=== PATIENT | male | born 2000 | race Caucasian/White ===

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

== ENCOUNTER 2022-02-26 18:02 | Emergency (ER) | payer OTHER ==
[~2022-02-26] VITALS: Ht 182.9 cm; Wt 105.7 kg
[2022-02-26 18:15] VITALS: BP 129/54
--- NOTE | 2022-02-26 18:23 | NUR ---
PT AMBULATED TO BED 01.
--- NOTE | 2022-02-26 18:30 | NUR ---
21 Y.O. C/O LL PELVIC PAIN X 2 DAYS. DENIES DYSURIA. PT HAD TESTICULAR DISCOMFORT YESTERDAY. HE TOLD ME THAT HE HAS DISCOMFORT NOT REALLY APIN. DENIES INJURING HIM SELF. A&OX4, SKIN INTACT, VITALS WNL AND STEADY GAIT. NKA PMH: DENIES
--- NOTE | 2022-02-26 19:18 | NUR ---
Pt report given to STEVIE FLOWERS. Transfer of care at this time.
[2022-02-26 19:42] LABS: APPEARANCE,URINE CLEAR (CLEAR); BILIRUBIN,URINE NEGATIVE (NEGATIVE); BLOOD, URINE NEGATIVE (NEGATIVE); COLOR,URINE YELLOW (YELLOW); LEUKOCYTE ESTERASE ,URINE NEGATIVE (NEGATIVE); NITRITE, URINE NEGATIVE (NEGATIVE); UGLUCOSE NEGATIVE (NEGATIVE)
[2022-02-26 21:24] VITALS: BP 144/71
--- NOTE | 2022-02-26 21:25 | NUR ---
Patient discharged with v/s stable. Written and verbal after care instructions given and explained. Patient verbalized understanding. Ambulatory with steady gait. All questions addressed prior to discharge. Advised to follow up with PMD.
== END 2022-02-26 21:24 | disposition home or self-care (01) ==
LOC: MED 18:02
DX: N50.812 Left testicular pain (principal)
CPT/HCPCS: 76870; 81003; 87491; 99284; Q0092

== ENCOUNTER 2022-07-10 17:06 | Emergency (ER) | payer OTHER ==
[~2022-07-10] VITALS: Ht 182.9 cm; Wt 119.3 kg
--- NOTE | 2022-07-10 17:17 | NUR ---
PT AMBULATED TO LOBBY
[2022-07-10 17:18] VITALS: BP 123/58
--- NOTE | 2022-07-10 17:19 | NUR ---
22/M WALKED IN C/O LEFT WRIST PAIN ONSET YESTERDAY AFTER WORK. 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 REPORTS CONSTANT ACHING PAIN AT THIS TIME. AAO4, AMBULATORY, NO ACUTE DISTRESS NOTED. VITALS STABLE PMH: DENIES
[2022-07-10] MEDS ORDERED: IBUPROFEN 800 MG TAB PO ONE (18:25)
[2022-07-10 19:53] VITALS: BP 116/62
== END 2022-07-10 19:53 | disposition home or self-care (01) ==
LOC: MED 17:06
DX: S52.592A Other fractures of lower end of left radius, initial encounter for closed fracture (principal); X50.0XXA Overexertion from strenuous movement or load, initial encounter; Y93.89 Activity, other specified; Y92.89 Other specified places as the place of occurrence of the external cause; Y99.0 Civilian activity done for income or pay
CPT/HCPCS: 73110; 99283